=== PATIENT | male | born 1955 | race Caucasian/White ===

== ENCOUNTER 2018-02-21 10:03 | Day surgery (SDC) | payer BC ==
[~2018-02-21] VITALS: Ht 182.9 cm; Wt 97.5 kg
[2018-02-21 10:40] VITALS: BP 127/78
[2018-02-21 16:18] VITALS: BP 141/74
[2018-02-21 16:55] VITALS: BP 131/80
== END 2018-02-21 16:58 | disposition home or self-care (01) ==
LOC: SDC 10:03
DX: H33.8 Other retinal detachments (principal)
CPT/HCPCS: J0330; J0690; J0713; J2250; J2405; J3010; J3300